=== PATIENT | female | born 1995 | race Caucasian/White ===

== ENCOUNTER 2016-04-28 17:42 | Observation (INO) | payer SELFPAY ==
[~2016-04-28] VITALS: Ht 162.6 cm; Wt 90.7 kg
[2016-04-28] MEDS ORDERED: LACTATED RINGER'S 1,000 ML IV ONE (18:30)
[2016-04-28 18:43] LABS: Urine Bilirubin Negative (Negative); Urine Blood Negative /uL (Negative); Urine Color Yellow (Yellow); Urine Glucose Normal (Normal); Urine Ketone Negative (Negative); Urine Nitrite Negative (Negative); Urine RBC <1 /hpf (0 - 4); Urine Squamous Epithelial Cell FEW /hpf (<5); Urine Urobilinogen Normal (Negative)
== END 2016-04-28 20:12 | disposition home or self-care (01) | DRG 782 ==
LOC: LDRP 17:42
PROVIDERS: ADMIT Specialist; ATTEND Specialist
DX: O62.9 Abnormality of forces of labor, unspecified (principal); Z3A.37 37 weeks gestation of pregnancy
CPT/HCPCS: 59025; 81001; G0378; G0434; 96365; 96366